=== PATIENT | female | born 1955 | race Caucasian/White ===

== ENCOUNTER → 2024-11-25 13:12 | Outpatient (REF) | payer MEDICARE, OTHER, SELFPAY ==
[2024-11-25 14:01] LABS: Hematocrit 36.0 % (37.0-47.0); Hemoglobin 10.8 g/dL (12.0-16.0); Mean Corp Hgb Conc. 30.0 g/dL (33.0-37.0); Mean Corpuscular Volume 86.1 fL (81.0-99.0); Nucleated Red Blood Cells % 0 %; Platelet Count 253 10^3/uL (130-400); Red Cell Dist. Width 15.5 % (11.5-14.5)
[2024-11-25 14:51] LABS: ALT (SGPT) 19 U/L (0-35); AST (SGOT) 24 U/L (14-36); Albumin 4.5 g/dl (3.5-5.0); Alkaline Phosphatase 123 U/L (38-126); Blood Urea Nitrogen 33 mg/dl (7-17); Calcium 9.5 mg/dl (8.4-10.2); Carbon Dioxide 26 mmol/L (22-30); Chloride 104 mmol/L (98-107); Glucose 109 mg/dl (70-99); Potassium 5.0 mmol/L (3.5-5.1); Sodium 138 mmol/L (135-145); Total Protein 7.4 g/dl (6.3-8.2); eGFR > 60.00
== END ==
LOC: SDSPAT 13:12
PROVIDERS: ATTENDING PHYSICIAN Student in an Organized Health Care Education/Training Program; FAMILY PHYSICIAN Family Medicine Sports Medicine; OTHER PHYSICIAN Internal Medicine Cardiovascular Disease
DX: R94.39 Abnormal result of other cardiovascular function study (principal)
CPT/HCPCS: 36415; 80053; 85025; 93005

== ENCOUNTER 2024-11-26 08:03 | Day surgery (SDC) | payer MEDICARE, OTHER, SELFPAY ==
[2024-11-25 13:51] VITALS: BMI 39.5
[2024-11-26] VITALS (14 sets, daily range): BP systolic 127–157; BP diastolic 62–105; BMI 39.4
--- NOTE | 2024-11-26 16:30 | ITS.CL.PN ---
Pharmacist Critical Care - Procedure Note
Procedure
Procedure Note:
CARDIAC CATHETERIZATION REPORT
Date of Procedure: 11/26/2024
Referring: Dr. Ritesh Stubbs MD
Indication: NSVT on monitor tech, positive cardiac stress test
PROCEDURE(S)
1. left heart catheterization
2. coronary angiography
ACCESS: 6F right radial artery (closure: radial band)
CATHETERS
1. 6F JR4
2. 6F JL3.5
MODERATE SEDATION: 25 minutes of moderate sedation was utilized. An independent medical esthetician was present to assist with and help manage the patient's level of consciousness and physiologic status.
CORONARY ANGIOGRAPHY
Dominance: Left
LM: Short, normal
LAD: Large vessel giving rise to several small diagonal branches and wrapping around the apex. There are trivial luminal irregularities only.
LCx: Large-caliber vessel giving rise to moderate caliber OM1 and large OM2. There is mild ostial narrowing and otherwise are trivial luminal irregularities only.
RCA: Occluded proximally within prior stent with the entire vessel fed by robust [id number] collaterals.
RADIATION: dose 358 mGy; DAP 22.1 Gy*cm2; fluoroscopy time 9.5 min
CONCLUSION: single-vessel coronary artery disease and right dominant system as described with chronic total occlusion of the ostial RCA within prior stent with robust [id number]-br-[id number] collaterals.
RECOMMENDATIONS
1. Secondary prevention of coronary artery disease
2. Medical management of ICM and NSVT with beta john
Copy to: Dr. Ritesh Stubbs MD (scroll machine operator); Dr. Arlet Keller MD (PCP)
Signed: Davin Parisi MD, PhD
== END 2024-11-26 14:15 | disposition home or self-care (01) ==
LOC: CATH 08:03
PROVIDERS: ATTENDING PHYSICIAN Student in an Organized Health Care Education/Training Program; FAMILY PHYSICIAN Family Medicine Sports Medicine; OTHER PHYSICIAN Internal Medicine Cardiovascular Disease
DX: I25.10 Atherosclerotic heart disease of native coronary artery without angina pectoris (principal); I10 Essential (primary) hypertension; E78.5 Hyperlipidemia, unspecified; C81.90 Hodgkin lymphoma, unspecified, unspecified site; I08.0 Rheumatic disorders of both mitral and aortic valves; Z95.5 Presence of coronary angioplasty implant and graft; I44.2 Atrioventricular block, complete; Z86.718 Personal history of other venous thrombosis and embolism; I47.20 Ventricular tachycardia, unspecified; Z85.3 Personal history of malignant neoplasm of breast; Z90.13 Acquired absence of bilateral breasts and nipples; M19.90 Unspecified osteoarthritis, unspecified site; K58.9 Irritable bowel syndrome, unspecified; Z79.899 Other long term (current) drug therapy; Z79.82 Long term (current) use of aspirin; F32.A Depression, unspecified; Z68.35 Body mass index [BMI] 35.0-35.9, adult; F41.9 Anxiety disorder, unspecified; E66.01 Morbid (severe) obesity due to excess calories
CPT/HCPCS: 99152; 99153; 93458; C1769; C1894; Q9967